=== PATIENT | female | born 1970 | race African-American/Black ===

== ENCOUNTER 2025-02-06 14:32 | Outpatient (AMB) | payer OTHER, SELFPAY ==
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
[2025-02-06 14:53] VITALS: BP 142/71; PULSE 68; RESP 16; TEMP 36.6; O2SAT 97; BMI 28.2
== END 2025-02-06 16:06 | disposition home or self-care (01) ==
LOC: HO.HMCSH 14:32
PROVIDERS: PCP Physician Assistant Medical; Visit Provider Physician Assistant Medical
DX: Z00.00 Encounter for general adult medical examination without abnormal findings (principal); E04.2 Nontoxic multinodular goiter; R01.1 Cardiac murmur, unspecified; E03.9 Hypothyroidism, unspecified; M17.0 Bilateral primary osteoarthritis of knee; Z12.11 Encounter for screening for malignant neoplasm of colon; Z12.39 Encounter for other screening for malignant neoplasm of breast; Z13.820 Encounter for screening for osteoporosis

== ENCOUNTER → 2025-02-06 14:32 | Outpatient (BNVA) | payer OTHER, SELFPAY | PROVIDERS: PCP Physician Assistant Medical; Visit Provider Physician Assistant Medical | DX: Z00.00 Encounter for general adult medical examination without abnormal findings (principal); E03.9 Hypothyroidism, unspecified; M17.0 Bilateral primary osteoarthritis of knee; E04.2 Nontoxic multinodular goiter; R01.1 Cardiac murmur, unspecified | CPT/HCPCS: 96127 ==

== ENCOUNTER 2025-02-13 11:27 | Outpatient (REF) | payer OTHER, SELFPAY ==
[2025-02-13 18:25] LABS: MANUAL DIFF FLAG NO
[2025-02-13 18:34] LABS: Hematocrit 40.2 % (37.0-47.0); Hemoglobin 13.0 g/dl (12.0-16.0); Imm Gran Abs Auto 0.00 X10*3/uL (0.00-0.03); Imm Gran Pct Auto 0.0 % (0.0-0.4); Lymphocytes Absolute Auto 2.1 X10*3/uL (1.2-4.9); Mean Corpuscular HGB Conc 32.3 g/dl (31.0-35.0); Mean Corpuscular Hemoglobin 30.1 pg (27.0-33.0); Mean Corpuscular Volume 93.1 fL (80.0-98.0); NRBC Abs Auto 0.000 X10*3/uL (0.0-0.012); NRBC Pct Auto 0.0 /100WBC (0.0-0.2); Platelet Count 372 X10*3/uL (160-400); Red Blood Count 4.32 X10*6/uL (4.20-5.50); White Blood Count 4.7 X10*3/uL (4.8-10.8)
[2025-02-13 18:56] LABS: Alanine Aminotransferase 18 U/L (0-31); Albumin Level 4.7 g/dL (3.5-5.0); Alkaline Phosphatase 55 U/L (39-117); Anion Gap 12 (12-20); Aspartate Amino Transferase 25 U/L (5-31); Blood Urea Nitrogen 7 mg/dL (9-16); Calcium 9.5 mg/dL (8.4-10.2); Carbon Dioxide 27 mmol/L (22-29); Chloride 104 mmol/L (96-108); Cholesterol 227 mg/dL (<200); Estimated Glomerular Filt Rate > 60; HDL Cholesterol 106 mg/dL (>40); Magnesium 2.2 mg/dL (1.6-2.6); Potassium 4.3 mmol/L (3.3-5.1); Sodium 139 mmol/L (135-145); Total Protein 7.7 g/dL (6.5-8.0); Triglycerides 60 mg/dL (<150)
[2025-02-13 19:03] LABS: Appearance Urine Clear; Glucose Urine UA Negative (Negative); PH 7.0 (5.0-9.0); Specific Gravity - Urine <= 1.005 (1.005-1.025); UMIC TRIGGER UACC YES
[2025-02-13 19:14] LABS: Folate 11.6 ng/mL (> or = 4.0); Vitamin B12 324 pg/mL (200-900)
[2025-02-13 19:47] LABS: Free T4 (Free Thyroxine) 1.10 ng/dL (0.71-1.85)
== END 2025-02-13 11:28 | disposition home or self-care (01) ==
LOC: HO.HKASLDS 11:27
PROVIDERS: PCP Physician Assistant Medical; Visit Provider Physician Assistant Medical
DX: Z00.00 Encounter for general adult medical examination without abnormal findings (principal); Z13.6 Encounter for screening for cardiovascular disorders; Z13.29 Encounter for screening for other suspected endocrine disorder; Z13.1 Encounter for screening for diabetes mellitus
CPT/HCPCS: 36415; 80053; 80061; 80076; 81001; 81003; 82248; 82306; 82607; 82746; 83036; 83735; 84439; 84443; 85025; 85652; 86140

== ENCOUNTER → 2025-03-02 12:53 | Outpatient (REF) | payer OTHER, SELFPAY ==
--- NOTE | 2025-03-02 12:57 | CA_ITS ---
Transthoracic Echocardiogram Patient (Last, First, Middle): Mark Lewis, Gender: F Date of : 1970 Age: 54 Procedure Date: 03/02/2025 Procedure Type: Transthoracic Echocardiogram Location: OP Height: 165.1 cm Weight: 77.57 kg BSA: 1.85 m2 Heart Rate: bpm BP: 142 / 71 mmHg [employer] Compliance Specialist: ANTONIO Referring MD: Keshia Ni PA-C Symptoms: R01.1 - Cardiac murmur, unspecified Study Quality: Adequate ECG Rhythm: Sinus Conclusions: - The left ventricular systolic function is normal. The calculated ejection fraction is 62% by biplane method. - No obvious valvular pathology seen on this study. Findings Left Ventricle Normal left ventricular cavity size. There is normal left ventricular wall thickness. The left ventricular systolic function is normal. The calculated ejection fraction is 62% by biplane method. There is no evidence of regional wall motion abnormalities. Diastolic function is normal for age. Right Ventricle Normal right ventricular cavity size and systolic function. Atria Both atria are normal in size. Aortic Valve There is a normal trileaflet aortic valve. There is no aortic valve stenosis. There is no aortic valve regurgitation. Mitral Valve The mitral valve appears normal. There is no mitral valve regurgitation. There is no mitral valve stenosis. Pulmonic Valve The pulmonic valve is likely normal. Tricuspid Valve There is trace tricuspid valve regurgitation. There is no evidence of pulmonary hypertension. Great Vessels The asc aorta is normal in size. Venous The inferior vena cava is normal in size and collapses greater than 50% with inspiration. Pericardium/Pleural There is no evidence of pericardial effusion. Prior Study Comparison No prior study available for comparison. Recommendations, Care & Conclusions No obvious valvular pathology seen on this study. Measurements 2D Linear Measurements IVSd: 0.97 0.6-0.9/0.6-1.0 cm LVIDd: 4.90 3.9-5.3/4.2-5.9 cm LVIDd Index: 2.65 2.4-3.2/2.2-3.1 cm/m2 LVIDs: 3.33 2.0-3.6 cm LVPWd: 0.91 0.7-1.1 cm LA Diam: 3.60 2.7-3.8/3.0-4.0 cm LAIDs Index: 1.95 1.5-2.3 cm/m2 LV Mass: 200.92 67-162/88-224 g LV Mass Index: 108.60 43-95/49-115 g/m2 LVOT Diam: 2.00 3.0+(-)1.3 cm 2D Systolic Function EF 4C: 60.50 >55% EF 2C: 64.40 >55% EF BiP: 62.10 >55% Mitral Valve MV Pk E: 0.90 MV PK A: 0.70 MV Decel Time: 192.00 E/A: 1.30 E'Lateral: 10.30 E'Medial: 8.59 E/E' Med: 10.50 E/E' Lat: 8.70 PHT: 56.00 MVA PHT: 3.93 Decel Woods: 4.69 Aortic Valve AoV Pk Wesly: 1.63 AoV Mn Wesly: 1.07 AoV VTI: 0.38 AoV Pk Grad: 11.00 Aov Mn Grad: 5.00 MARLA Cont.VTI: 2.15 LVOT LVOT Pk Wesly: 1.10 LVOT Mn Wesly: 0.77 LVOT VTI: 0.26 LVOT Pk Grad: 5.00 LVOT Mn Grad: 3.00 LVOT Diam: 2.00 LVOT Area: 3.14 Diastolic Function MV Pk E: 0.90 MV Pk A: 0.70 E/A: 1.30 E'Medial: 8.59 E/E' Med: 10.50 E' Laterial: 10.30 E/E' Lat: 8.70 Right Ventricle TAPSE (mm): 29.40 TVS' Wesly: 12.40 Tricuspid Valve TR Pk Wesly: 2.42 TR Pk Grad: 23.00 RA Press: 3.00 RVSP: 26.00 Great Vessels Aorta Sinus of Valsalva: 3.06 2.0-3.[address] Ridge: 2.25 1.7-3.4 cm Ao Asc: 3.30 2.1-3.4 cm Pulmonary Veins Pulm Vein S/D 1.20 Updated in Other Vendor System with Status of Final Herberth Bazzi MD electronically signed on 03/03/2025 3:20:18 PM with status of Final
--- OUTSIDE RECORDS SUMMARY | 2025-03-02 16:23 | XMS_ITS | Clinical Summary ---
Author Organization [facility] Address [address] [place] [address] Phone Care Team Providers Care Computer Technology Trainer Name Role Phone Nathaniel Herve Camron CARNES Primary Care Provider [phone] Allergies No known active allergies Surgical History Surgery Date Site/Laterality Comments COLPOSCOPY PROCEDURE: [place] COLPOSCOPY ENTIRE VAGINA W/VAGINA/CERVIX BX OTHER SURGICAL HISTORY PROCEDURE: SKIN GRAFT <100SQCM BREAST BIOPSY 2014 Left PROCEDURE: BX BREAST; PERC NEEDLE CORE W/IMAG GUID; COMMENT: neg LASER ABLATION OF THE CERVIX 2009 PROCEDURE: [place] CAUTERY CERVIX LASER ABLATION Medical History Medical [...] mmol/L LAB CHEMISTRY METHOD 06/27/2024 5:44 PM [facility] Potassium 4.5 3.5 - 5.5 mmol/L LAB CHEMISTRY METHOD 06/27/2024 5:44 PM [facility] Chloride 109 96 - 110 mmol/L LAB CHEMISTRY METHOD 06/27/2024 5:44 PM [facility] CO2 21 21 - 32 mmol/L LAB CHEMISTRY METHOD 06/27/2024 5:44 PM [facility] Anion Gap 8 3 - 11 LAB CHEMISTRY METHOD 06/27/2024 5:44 PM [facility] Glucose 77 70 - 100 mg/dL LAB CHEMISTRY METHOD 06/27/2024 5:44 PM [facility] BUN 16 5 - 25 mg/dL LAB CHEMISTRY METHOD 06/27/2024 5:44 PM [facility] Creatinine 0.89 0.50 - 1.10 mg/dL LAB CHEMISTRY METHOD 06/27/2024 5:[address] [facility] eGFR 78 >=60 mL/min/1. 73m2 LAB CHEMISTRY METHOD 06/27/2024 5:[address] [facility] Comment:Calculation based on the Chronic Kidney Disease Epidemiology Collaboration (CKD-EPI) equation refit without adjustment for race. BUN/Creatinine Ratio 18.0 LAB CHEMISTRY METHOD 06/27/2024 5:[address] [facility] Calcium 9.3 8.5 - 10.5 mg/dL LAB CHEMISTRY METHOD 06/27/2024 5:[address] [facility] Blood Venous blood specimen / Unknown Venipuncture / Unknown 06/27/2024 5:01 PM EST 06/27/2024 5:10 PM EST Donald Das MD LAB BLOOD ORDERABLES Final Resu lt [facility] [address] [place] [address], * Pap smear (12/28/2021) 12/28/2021 Narrative HISTORICAL TESTING LAB RESULTING AGENCY - 01/06/2022 7:16 AM EDT [id number] THINPREP PAP, IMAGED: NEGATIVE FOR SQUAMOUS INTRAEPITHELIAL [...] Maintenance Insurance MEDICAID - [place] Care Teams Computer Technology Trainer Relationship Specialty Start Date End Date Herve Armstrong DO [address] [place] [address] PCP - General Family Medicine 06/28/24
== END ==
LOC: HO.CARD 12:53
PROVIDERS: PCP Physician Assistant Medical; Visit Provider Physician Assistant Medical
DX: R01.1 Cardiac murmur, unspecified (principal)
CPT/HCPCS: 93306

== ENCOUNTER → 2025-03-02 12:57 | Outpatient (BNV) | payer OTHER, SELFPAY | PROVIDERS: PCP Physician Assistant Medical; Visit Provider Internal Medicine | DX: R01.1 Cardiac murmur, unspecified (principal) | CPT/HCPCS: 93306 ==

== ENCOUNTER 2025-04-15 08:46 | Outpatient (REF) | payer OTHER, SELFPAY ==
--- NOTE | ~2025-04-15 | US_ITS ---
EXAMINATION: US THYROID HISTORY: E04.2 - Nontoxic multinodular goiter TECHNIQUE: Real-time grayscale ultrasound imaging was performed and images were reviewed. COMPARISON: There are no prior studies available for comparison. FINDINGS: SIZE: The right thyroid lobe measures 3.5 x 1.2 x 0.8 cm. The left thyroid lobe is too small to measure. The isthmus measures 1 mm. FLOW: Flow to the gland is normal. ECHOGENICITY: The echotexture of the gland is homogeneous. NODULES: No nodules are identified. US/US thyroid IMPRESSION: Atrophic thyroid gland. No discrete nodule is identified. ACR TI-RADS Guidelines TR1 (0 points): Benign. No follow-up or biopsy required TR2 (2 points): Not Suspicious. No biopsy or follow up indicated TR3 (3 points): Mildly Suspicious. FNA if >= 2.5 cm, Follow if >= 1.5 cm TR4 (4-6 points): Moderately Suspicious. FNA if >= 1.5 cm, Follow if >= 1.0 cm TR5 (>=7 points): Highly Suspicious. FNA if >= 1.0 cm, Follow if >= 0.5 cm Electronically signed by: Herve Crane MD 04/15/2025 09:45 AM [facility]
[2025-04-15 11:01] LABS: Appearance Urine Clear; Glucose Urine UA Negative (Negative); PH 8.5 (5.0-9.0); Specific Gravity - Urine 1.010 (1.005-1.025); UMIC TRIGGER UACC YES
[2025-04-15 11:11] LABS: UACC Culture Trigger YES
== END 2025-04-15 08:47 | disposition home or self-care (01) ==
LOC: HO.US 08:46
PROVIDERS: PCP Physician Assistant Medical; Visit Provider Physician Assistant Medical
DX: Z00.00 Encounter for general adult medical examination without abnormal findings (principal); E04.2 Nontoxic multinodular goiter
CPT/HCPCS: 36415; 76536; 81001; 81003; 84443; 87086

== ENCOUNTER → 2025-04-15 08:47 | Outpatient (BNV) | payer OTHER, SELFPAY | PROVIDERS: PCP Physician Assistant Medical; Visit Provider Radiology Diagnostic Radiology | DX: E03.4 Atrophy of thyroid (acquired) (principal) | CPT/HCPCS: 76536 ==

== ENCOUNTER → 2025-04-24 10:00 | Outpatient (BNV) | payer OTHER, SELFPAY | PROVIDERS: PCP Physician Assistant Medical; Visit Provider Radiology Diagnostic Radiology | DX: E28.39 Other primary ovarian failure (principal) | CPT/HCPCS: 77080 ==

== ENCOUNTER 2025-04-24 10:01 | Outpatient (REF) | payer OTHER, SELFPAY ==
--- NOTE | ~2025-04-24 | MM_ITS ---
EXAMINATION: DXA BONE DENSITY AXIAL HISTORY: M81.0 - Age-related osteoporosis without current pathological fracture TECHNIQUE: [employer] Dual energy absorptiometry (DEXA) of the lumbar spine, total left hip, and femoral neck was performed. COMPARISON: There are no prior studies for comparison. FINDINGS: The bone mineral density of the lumbar spine is 1.429 g/cm2, corresponding to a T-score of 2.1, and a Z-score of 1.6. This is indicative of normal bone mineral density. The bone mineral density of the left total hip is 1.198 g/cm2, corresponding to a T-score of 1.5, and a Z-score of 0.8. This is indicative of normal bone mineral density. The bone mineral density of the left femoral neck is 1.204 g/cm2, corresponding to a T-score of 1.2, and a Z-score of 0.9. This is indicative of normal bone mineral density. FRACTURE RISK: The FRAX index suggests a risk of major osteoporotic fracture of 1.8%, and of hip fracture 0.0%. MM/XR DEXA axial skeleton IMPRESSION: Based on bone mineral density, and according to World Health Organization (WHO) criteria, the diagnosis is consistent with normal bone mineral density. Statistically, 68% of repeat scans fall within 1 SD (+/- 0.010 g/cm2 for AP spine L1-L4) and 1 SD (+/- 0.012 g/cm2 for femur total) FRAX is a trademark of the [employer] [place] [facility] Met[employer] Bone Disease, a World Health Organization (WHO) Collaborating Center. Electronically signed by: Herve Crane MD 04/24/2025 11:45 AM [facility] [place] [place]
--- OUTSIDE RECORDS SUMMARY | 2025-04-24 11:13 | XMS_ITS | Clinical Summary ---
Author Organization [facility] Address [address] [place] [address] Phone Care Team Providers Care Mica Layer Name Role Phone Nathaniel Herve Camron CARNES Primary Care Provider [phone] Allergies No known active allergies Surgical History Surgery Date Site/Laterality Comments COLPOSCOPY PROCEDURE: [place] COLPOSCOPY ENTIRE VAGINA W/VAGINA/CERVIX BX OTHER SURGICAL HISTORY PROCEDURE: SKIN GRAFT <100SQCM BREAST BIOPSY 2014 Left PROCEDURE: BX BREAST; PERC NEEDLE CORE W/IMAG GUID; COMMENT: neg LASER ABLATION OF THE CERVIX 2009 PROCEDURE: [place] CAUTERY CERVIX LASER ABLATION Medical History Medical [...] not to disclose 2024 4:54 AM EST Last Filed Vital Signs Vital Sign Reading [...] Smear 12/28/2024 12/28/2021 COVID-19 Vaccine (1 - 2024-2 6 season) 2025 Influenza Vaccine (#1) 2025 6, [...] mmol/L LAB CHEMISTRY METHOD 06/27/2024 5:44 PM [facility] Potassium 4.5 3.5 - 5.5 mmol/L LAB CHEMISTRY METHOD 06/27/2024 5:44 PM [facility] Chloride 109 96 - 110 mmol/L LAB CHEMISTRY METHOD 06/27/2024 5:44 PM [facility] CO2 21 21 - 32 mmol/L LAB CHEMISTRY METHOD 06/27/2024 5:44 PM [facility] Anion Gap 8 3 - 11 LAB CHEMISTRY METHOD 06/27/2024 5:44 PM [facility] Glucose 77 70 - 100 mg/dL LAB CHEMISTRY METHOD 06/27/2024 5:44 PM [facility] BUN 16 5 - 25 mg/dL LAB CHEMISTRY METHOD 06/27/2024 5:44 PM [facility] Creatinine 0.89 0.50 - 1.10 mg/dL LAB CHEMISTRY METHOD 06/27/2024 5:44 PM EST [facility] eGFR 78 >=60 mL/min/1. 73m2 LAB CHEMISTRY METHOD 06/27/2024 5:44 PM EST [facility] Comment:Calculation based on the Chronic Kidney Disease Epidemiology Collaboration (CKD-EPI) equation refit without adjustment for race. BUN/Creatinine Ratio 18.0 LAB CHEMISTRY METHOD 06/27/2024 5:44 PM EST [facility] Calcium 9.3 8.5 - 10.5 mg/dL LAB CHEMISTRY METHOD 06/27/2024 5:44 PM EST [facility] Blood Venous blood specimen / Unknown Venipuncture / Unknown 06/27/2024 5:01 PM EST 06/27/2024 5:10 PM EST Donald Das MD LAB BLOOD ORDERABLES Final Resu lt [facility] [address] [place] [address], * Pap smear (12/28/2021) 12/28/2021 Narrative HISTORICAL TESTING LAB RESULTING AGENCY - 01/06/2022 7:16 AM EDT [id number] THINPREP PAP, IMAGED: NEGATIVE FOR SQUAMOUS INTRAEPITHELIAL [...] DIAGNOSIS. MENOPAUSE, PAP HX POSITIVE 2016, [Z01.419] us Areli Mcneill CNM LAB CYTOLOGY ORDERABLES Keyona davion Result HISTORICAL TESTING LAB RESULTING AGENCY from Last 3 Months or Most Recently Relevant to Health Maintenance Insurance MEDICAID - [place] Care Teams Mica Layer Relationship Specialty Start Date End Date Herve Armstrong DO [address] [place] [address] PCP - General Family Medicine 06/28/24
== END 2025-04-24 10:02 | disposition home or self-care (01) ==
LOC: HO.MAMMO 10:01
PROVIDERS: PCP Physician Assistant Medical; Visit Provider Physician Assistant Medical
DX: Z12.31 Encounter for screening mammogram for malignant neoplasm of breast (principal); M81.0 Age-related osteoporosis without current pathological fracture
CPT/HCPCS: 77063; 77067; 77080